=== PATIENT | female | born 1985 | race American Indian/Alaskan Native ===

== ENCOUNTER 2020-08-12 12:13 | Emergency (ER) | payer OTHER ==
[2020-08-12] MEDS ORDERED: LIDOCAINE 1%/EPINEPHRINE 1:100,000 VIAL (20 ML) INFILTRATI ONE (12:39)
--- NOTE | 2020-08-12 12:46 | Emergency Department Report ---
ED General Adult HPI - General Stated complaint: LAC TO LFT CALF Time Seen by Provider: 08/12/20 12:34 - History of Present Illness Initial comments: 34-year-old female injured accidentally secondary to broken mirror glass posterior left calf. She reports no distal motor or sensory changes. She denies any other injury. -: Sudden (Approximately 11 AM) Location: lower extremity Radiation: non-radiation Quality: aching Consistency: constant Improves with: none Worsens with: none Associated Symptoms: denies other symptoms ED Review of Systems ROS: Stated complaint: LAC TO LFT CALF Other details as noted in HPI Comment: All other systems reviewed and negative ED Past Medical Hx - Past Medical History Previous Medical History?: Yes Hx Asthma: Yes - Surgical History Past Surgical History?: No - Social History Smoking Status: Current Every Day Smoker Substance Use Type: None ED Physical Exam - General Limitations: Physical Limitation General appearance: alert - Head Head exam: Present: atraumatic - Eye Eye exam: Present: normal appearance - Neck Neck exam: Present: full ROM - Respiratory Respiratory exam: Absent: respiratory distress - Extremities Exam Extremities exam: Present: other (There is a 5 to 6 cm linear laceration of the posterior calf into the subcutaneous fat.) - Neurological Exam Neurological exam: Present: alert, oriented X3, CN II-XII intact. Absent: motor sensory deficit - Psychiatric Psychiatric exam: Present: normal affect, anxious - Skin Skin exam: Present: other (Laceration as above) - Other Other exam information: Neurovascular exam is intact. ED Course Vital Signs 08/12/20 12:32 Temperature 98.2 F Pulse Rate 98 H Respiratory 18 Rate Blood Pressure 127/85 O2 Sat by Pulse 99 Oximetry - Laceration /Wound Repair Left Lower Calf Wound Location: lower extremity Wound Length (cm): 6 Wound's Depth, Shape: superficial Wound Explored: clean Betadine Prep?: Yes Anesthesia: Lidocaine w/ Epi Volume Anesthetic (ccs): 5 Wound Repaired With: sutures (Wound stapled. Good approximation. 9 nivia placed.) Layer Closure?: No Sterile Dressing Applied?: Yes Critical care attestation.: If time is entered above; I have spent that time in minutes in the direct care of this critically ill patient, excluding procedure time. ED Disposition Clinical Impression: Leg laceration Qualifiers: Encounter type: initial encounter Laterality: left Qualified Code(s): S81.812A - Laceration without foreign body, left lower leg, initial encounter Disposition: DC- TO HOME OR SELFCARE Is pt being admited?: No Does the pt Need Aspirin: No Condition: Stable Instructions: Sutures, Nivia, or Adhesive Wound Closure, [id number] Additional Instructions: Do not stress wound repair. [place] can be removed in 10 to 14 days. Referrals: PRIMARY CARE, [Primary Care Provider] - 3-5 Days Time of Disposition: 13:36
[2020-08-12 13:10] VITALS: BP 127/85
== END 2020-08-12 14:48 | disposition home or self-care (01) ==
LOC: ED 12:13
PROC: 0DQQXZZ Repair Anus, External Approach (ICD-10-PCS; principal; 2020-08-12)
DX: S81.812A Laceration without foreign body, left lower leg, initial encounter (principal); J45.909 Unspecified asthma, uncomplicated; F17.200 Nicotine dependence, unspecified, uncomplicated; W25.XXXA Contact with sharp glass, initial encounter; Y93.89 Activity, other specified; Y92.89 Other specified places as the place of occurrence of the external cause; Y99.8 Other external cause status
CPT/HCPCS: 99282

== ENCOUNTER 2020-08-26 14:39 | Emergency (ER) | payer SELFPAY ==
[2020-08-26 14:43] VITALS: BP 115/80
--- NOTE | 2020-08-26 14:49 | Emergency Department Report ---
ED General Adult HPI - General Chief complaint: Laceration/Recheck/Suture Stated complaint: STAPLE REMOVAL Time Seen by Provider: 08/26/20 14:49 Source: patient Mode of arrival: Ambulatory Limitations: No Limitations - History of Present Illness Initial comments: 34-year-old -[place] female patient presents for staple removal from left lower leg today. Patient had nivia placed in this facility on 08/12/2020. She denies any purulent drainage or redness/swelling, however states there has been worsening of pain in the last few days. No fev er/chills/sweats per patient. She also denies any numbness/tingling or difficulty moving her limb. Severity scale (0 -10): 0 - Related Data Previous Rx's Medication Instructions Recorded Last Taken Type Ibuprofen [Motrin 800 MG tab] 800 mg PO Q8HR PRN #20 tablet 08/26/20 Unknown Rx Sulfamethoxazole/Trimethoprim 1 each PO BID 10 Days #20 tablet 08/26/20 Unknown Rx [Bactrim DS TAB] Allergies Allergy/AdvReac Type Severity Reaction Status Date / Time No Known Allergies Allergy Unverified 08/26/20 14:40 ED Review of Systems ROS: Stated complaint: STAPLE REMOVAL Other details as noted in HPI Constitutional: denies: diaphoresis, fever, malaise Musculoskeletal: denies: joint swelling, arthralgia Skin: denies: change in color, pruritus Neurological: denies: numbness Hematological/Lymphatic: denies: swollen glands ED Past Medical Hx - Past Medical History Previous Medical History?: Yes Hx Asthma: Yes - Surgical History Past Surgical History?: No - Social History Smoking Status: Current Every Day Smoker Substance Use Type: None - Medications Home Medications: Home Medications Medication Instructions Recorded Confirmed Last Taken Type Ibuprofen [Motrin 800 MG tab] 800 mg PO Q8HR PRN #20 tablet 08/26/20 Unknown Rx Sulfamethoxazole/Trimethoprim 1 each PO BID 10 Days #20 tablet 08/26/20 Unknown Rx [Bactrim DS TAB] ED Physical Exam - General Limitations: No Limitations - Head Head exam: Present: atraumatic, normocephalic - Eye Eye exam: Present: normal appearance. Absent: scleral icterus - Respiratory Respiratory exam: Absent: respiratory distress - Cardiovascular Cardiovascular Exam: Present: regular rate - Extremities Exam Extremities exam: Present: full ROM, other (9 nivia noted to left lateral calf with minimal surrounding erythema; no purulent drainage noted; patient has full range of motion and sensation of the left lower leg with a normal pedal pulse) - Neurological Exam Neurological exam: Present: alert, oriented X3 - Psychiatric Psychiatric exam: Present: normal affect, normal mood - Skin Skin exam: Present: warm, dry, intact. Absent: rash, cyanosis, ecchymosis ED Course Vital Signs 08/26/20 14:40 Temperature 98.0 F Pulse Rate 89 Respiratory 16 Rate Blood Pressure 115/80 [Right] O2 Sat by Pulse 98 Oximetry - Procedure Description Procedures done: 9 nivia removed from left lower leg. Patient tolerated procedure well with minimal bleeding. No wound dehiscence noted ED Medical Decision Making - Medical Decision Making 34-year-old -[place] female patient presents for staple removal from left lower leg today. Patient had nivia placed in this facility on 08/12/2020. She denies any purulent drainage or redness/swelling, however states there has been worsening of pain in the last few days. No fever/chills/sweats per patient. She also denies any numbness/tingling or difficulty moving her limb. Minimal erythema noted to left lower leg on exam. Patient does admit to some worsening of her pain over the past few days. Will treat empirically with Bactrim for possible infection. Discussed wound care and signs and symptoms that should prompt immediate return to the emergency department in detail with patient who verbalized understanding. Her vitals are normal, she is well- appearing, and she is stable for discharge home. Patient to follow-up with [facility] in 3 days Critical care attestation.: If time is entered above; I have spent that time in minutes in the direct care of this critically ill patient, excluding procedure time. ED Disposition Clinical Impression: Removal of staple, Wound infection Disposition: - TO HOME OR SELFCARE Is pt being admited?: No Condition: Stable Instructions: Wound Infection, Wound Closure Removal, Care After Prescriptions: Sulfamethoxazole/Trimethoprim [Bactrim DS TAB] 1 each PO BID 10 Days #20 tablet Ibuprofen [Motrin 800 MG tab] 800 mg PO Q8HR PRN #20 tablet PRN Reason: pain
== END 2020-08-26 15:00 | disposition home or self-care (01) ==
LOC: ED 14:39
DX: T81.49XA Infection following a procedure, other surgical site, initial encounter (principal); L08.9 Local infection of the skin and subcutaneous tissue, unspecified; Z48.02 Encounter for removal of sutures; J45.909 Unspecified asthma, uncomplicated; F17.200 Nicotine dependence, unspecified, uncomplicated; Z79.899 Other long term (current) drug therapy
CPT/HCPCS: 99281